=== PATIENT | female | born 1955 | race Caucasian/White ===

== ENCOUNTER 2016-12-31 12:33 | Emergency (ER) | payer MEDICARE, BC ==
--- NOTE | ~2016-12-31 | US140 ---
[facility] A Service of [facility] RADIOLOGY TEXT RESULTS PATIENT: RACHEL VASQUEZ LOCATION: [facility] : 51 UNIT #: [id number] AGE: [address]: Chidi Lin MD SEX: F ORDER DR: [id number] [facility] [address] [place], [place] [address] [id number] E MR#: [id number] Acc #: [id number] NAME: RACHEL VASQUEZ : 1955 SEX: F STUDY DATE/TIME: 12/31/2016 14:42 UNIT: [facility] ROOM: STUDY DESCRIPTION: US UE Veins Unilat or Ltd Stdy Attending Physician: Silvino Lin M.D. Referring Physician: Willy Gonzalez M.D. Ordering Physician: Ed Jim Shaikh M.D. Primary Care Physician: Elena Ceron M.D. MEDICAL IMAGING REPORT This report is preliminary unless electronic signature is present EXAM Right upper extremity DVT study, dated 12/31/16. COMPARISON None. HISTORY Right upper extremity swelling and pain for 1 month. History of DVT/SVT. FINDINGS Structural cruz-scale analysis, color Doppler flow analysis and waveform analysis post-compression and augmentation of the right upper extremity superficial and deep veins were performed as per the protocol. The visualized portions of the right internal jugular, right subclavian veins and visualized right axillary, right superficial and deep brachial veins demonstrate expected normal flow with compression. No deep vein thrombosis. The proximal and distal cephalic and basilic veins demonstrate expected flow without thrombus. IMPRESSION No evidence of deep vein thrombosis. Dictated by... Kofi Robles M.D. THIS IS AN ELECTRONICALLY VERIFIED REPORT Kofi Robles M.D. at 01/02/2017 8:32 PM CPR/jt TD: 12/31/2016 18:55 [facility] A Service of [facility] RADIOLOGY TEXT RESULTS PATIENT: RACHEL VASQUEZ [id number] 51 UNIT #: [id number] AGE: [address]: Chidi Lin MD SEX: F ORDER DR: JOB #: [id number] MEDICAL IMAGING REPORT Page 1 of 1 COPY
--- NOTE | ~2016-12-31 | CR94 ---
[facility] A Service of [facility] & [facility] RADIOLOGY TEXT RESULTS PATIENT: RACHEL VASQUEZ LOCATION: [facility] : 51 UNIT #: [id number] AGE: [address]: Chidi Lin MD SEX: F ORDER DR: [id number] [facility] [address] [place], [place] [address] [id number] P MR#: [id number] Acc #: [id number] NAME: RACHEL VASQUEZ : 1955 SEX: F STUDY DATE/TIME: 12/31/2016 14:29 UNIT: [facility] ROOM: STUDY DESCRIPTION: CR Elbow Min 3 Views Rt Attending Physician: Silvino Lin M.D. Referring Physician: Willy Gonzalez M.D. Ordering Physician: Ed Jim Shaikh M.D. Primary Care Physician: Elena Ceron M.D. MEDICAL IMAGING REPORT This report is preliminary unless electronic signature is present EXAM Right elbow series, dated 12/31/16. COMPARISON None. HISTORY Right elbow pain for 4 days. FINDINGS Three views of the right elbow were obtained. Degenerative spurs are noted in the right elbow joint associated with the articulating surfaces in the radial head, proximal ulna and distal humerus. There is an oval calcified 1.4 x 1.7 x 2.3 cm in the posterior aspect of the distal radius close to the olecranon fossa. It could either represent a large osteophyte or bony lesion arising from the bone or calcified lesion abutting the bone. There is a moderate joint effusion seen. IMPRESSION 1. There is moderate joint effusion noted. 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 Well-defined acute displaced fracture is not seen. Depending on the need, CT can be considered. 2. There is an oval 2.3 cm calcified lesion noted posteriorly in the region of the olecranon fossa and adjacent bone. It is unclear if it arises from the bone or it is abutting the bone. It has a chronic appearance. There are no old studies for comparison. It could represent an osteophyte, bony mass or less likely a dystrophic calcification in the adjacent joint space, like a loose body. Dictated by... Kofi Robles M.D. [facility] A Service of [facility] & [facility] RADIOLOGY TEXT RESULTS PATIENT: RACHEL VASQUEZ [id number] 51 UNIT #: [id number] AGE: [address]: Chidi Lin MD SEX: F ORDER DR: THIS IS AN ELECTRONICALLY VERIFIED REPORT Kofi Robles M.D. at 01/02/2017 8:32 PM CPR/jt TD: 12/31/2016 15:55 JOB #: [id number] MEDICAL IMAGING REPORT Page 1 of 1 COPY
== END 2016-12-31 17:35 | disposition home or self-care (01) ==
LOC: CED 12:33
DX: M25.521 Pain in right elbow (principal); Z90.49 Acquired absence of other specified parts of digestive tract; Z90.89 Acquired absence of other organs
CPT/HCPCS: 73080; 93971; 99284